=== PATIENT | female | born 1995 | race Caucasian/White ===

== ENCOUNTER 2016-12-25 15:07 | Emergency (ER) ==
[~2016-12-25] VITALS: Ht 167.6 cm; Wt 63.6 kg
[2016-12-25 15:08] VITALS: BP 133/66
== END 2016-12-25 15:31 | disposition left against medical advice (07) ==
LOC: M ED 15:07
DX: R25.2 Cramp and spasm (principal); Z53.21 Procedure and treatment not carried out due to patient leaving prior to being seen by health care provider

== ENCOUNTER 2016-12-26 09:24 | Emergency (ER) | payer OTHER ==
[~2016-12-26] VITALS: Ht 167.6 cm; Wt 63.6 kg
[2016-12-26] MEDS ORDERED: NS 1,000 ML IV ONE (10:15)
[2016-12-26 10:31] LABS: BASO % 0.4 % (0.0-1.0); EOS # 0.4 K/mm3 (0.0-0.50); EOS % 4.3 % (0.0-3.0); LARGE UNSTAINED CELL # 0.2 K/mm3 (0.0-0.4); LARGE UNSTAINED CELL % 1.7 % (0.0-4.0); LYMPH # 1.3 K/mm3 (1.5-6.5); LYMPH % 14.5 % (24.0-44.0); MEAN CORPUSCULAR HEMOGLOBIN 30.9 pg (27.0-33.0); MEAN CORPUSCULAR HGB CONC 35.6 g/dl (32.0-36.5); MEAN CORPUSCULAR VOLUME 86.8 fl (80.0-96.0); MONO # 0.4 K/mm3 (0.0-0.8); MONO % 4.3 % (0.0-5.0); NEUTROPHILS # 6.8 K/mm3 (1.8-7.7); NEUTROPHILS % 74.8 % (36.0-66.0); PLATELET COUNT, AUTOMATED 335 k/mm3 (150-450); RED CELL DISTRIBUTION WIDTH 13.2 % (11.5-14.5)
[2016-12-26 11:10] LABS: ALBUMIN 3.9 GM/DL (3.2-5.2); ALBUMIN/GLOBULIN RATIO 0.98 (1.00-1.93); ALKALINE PHOSPHATASE 69 U/L (45-117); ALT/SGPT 25 U/L (12-78); ANION GAP 5 MEQ/L (8-16); AST/SGOT 12 U/L (15-37); BILIRUBIN,DIRECT 0.1 MG/DL (0.0-0.2); BILIRUBIN,TOTAL 0.5 MG/DL (0.2-1.0); BLOOD UREA NITROGEN 13 MG/DL (7-18); CALCIUM LEVEL 9.3 MG/DL (8.5-10.1); CARBON DIOXIDE LEVEL 28 MEQ/L (21-32); CHLORIDE LEVEL 106 MEQ/L (98-107); CREATININE FOR GFR 0.73 MG/DL (0.55-1.02); GLOMERULAR FILTRATION RATE > 60.0 (>60); GLUCOSE, FASTING 78 MG/DL (70-105); POTASSIUM SERUM 3.9 MEQ/L (3.5-5.1); SODIUM LEVEL 139 MEQ/L (136-145); TOTAL PROTEIN 7.9 GM/DL (6.4-8.2)
--- NOTE | 2016-12-26 12:11 | REP ---
Obstetric ultrasound, emergency room request, first trimester with right lower quadrant pelvic pain. There are no comparison studies. The study is performed with transabdominal, endovaginal and Doppler ultrasound assessment. There is an intrauterine gestational sac with a pole. The pole crown-rump length is 2.5 mm corresponding to 5 weeks 6 days gestational age. We are able to visualize cardiac activity on real time imaging. No heart rate is detectable with M-mode imaging. This is nonspecific and may merely be secondary to early gestational age, however, demise is not entirely discounted. Follow-up is recommended. There is a rounded echogenic structure along the left lateral margin of the gestational sac measuring 4.5 x 3.2 x 2.3 cm, possibly a large subchorionic hematoma. There is a normal size yolk sac measuring up to four or millimeters in diameter. There is a right ovarian complex hemorrhagic cyst measuring up to 2.8 cm, possibly a corpus luteum. Including this cyst in the right ovary is upper normal size measuring 4.0 x 2.6 x 3.2 cm. The left ovary is normal size measuring 2.6 x 1.8 x 2.2 cm and otherwise unremarkable. There is vascular flow in both ovaries with the Doppler resistive index of the intraparenchymal arteries on the right measuring 0.31, left 0.18. Impression: There is intrauterine gestation. There is no identifiable cardiac activity. This may merely be secondary to early gestational age or could represent demise. Follow-up is recommended. Suspect a large subchorionic hematoma to the left of the gestational sac. There is a normal size yolk sac. There is vascular flow in both ovaries. There is a hemorrhagic 2.7 cm right ovarian corpus luteum. No free fluid in the pelvis. Signed by Hans Colon MD 12/26/2016 12:03 P
[2016-12-26 13:11] VITALS: BP 118/65
== END 2016-12-26 13:35 | disposition home or self-care (01) ==
LOC: M ED 09:24
DX: O99.89 Other specified diseases and conditions complicating pregnancy, childbirth and the puerperium (principal); R10.31 Right lower quadrant pain; Z3A.01 Less than 8 weeks gestation of pregnancy

== ENCOUNTER → 2017-03-10 | Outpatient (CLI) | payer OTHER ==
[2017-03-10 15:35] LABS: BASO % 0.3 % (0.0-1.0); EOS # 0.3 10^3/uL (0.0-0.50); EOS % 2.9 % (0.0-3.0); IMMATURE GRANULOCYTE % 1.3 % (0-0); LYMPH # 1.6 10^3/uL (1.5-6.5); LYMPH % 14.2 % (24.0-44.0); MEAN CORPUSCULAR HEMOGLOBIN 30.6 pg (27.0-33.0); MEAN CORPUSCULAR HGB CONC 34.6 g/dl (32.0-36.5); MEAN CORPUSCULAR VOLUME 88.3 fl (80.0-96.0); MONO # 0.8 10^3/uL (0.0-0.8); MONO % 6.9 % (0.0-5.0); NEUTROPHILS # 8.6 10^3/uL (1.8-7.7); NEUTROPHILS % 74.4 % (36.0-66.0); PLATELET COUNT, AUTOMATED 235 10^3/uL (150-450); RED CELL DISTRIBUTION WIDTH 13.5 % (11.5-14.5); WHITE BLOOD COUNT 11.5 10^3/uL (4.0-10.0)
[2017-03-12 11:09] LABS: HBsAg Prenatal NEGATIVE (NEGATIVE)
== END ==
LOC: M LAB 15:08
PROVIDERS: ATTEND Obstetrics & Gynecology
DX: Z34.81 Encounter for supervision of other normal pregnancy, first trimester (principal)

== ENCOUNTER → 2017-03-28 | Outpatient (CLI) | payer OTHER ==
--- NOTE | 2017-03-28 10:14 | REP ---
Obstetric ultrasound for anatomy: There is a single intrauterine gestation. position is variable. There is motion. heart rate is 163 beats per minute. The placenta is anterior. There is no previa or abruptio. Placenta is grade zero. The amniotic fluid volume subjectively is normal. The cervix measures 4 cm length. Gestational Age: By LMP: 19 w 0 d By Today's US: 19 w 0 The OLMAN is 08/22/2017. Weight: 2-63 gm/ 0 lbs, 9 oz W 45 %ile for 19 w 0 d The following anatomic structures are identified and are unremarkable: Intracranial lateral ventricles, choroid plexus, cavum septum pellucidum, cerebellum, facial profile, upper lip, face, lungs, diaphragm, stomach, cord insertion, three-vessel cord, kidneys, bladder, spine and upper lower extremities. Suboptimally demonstrated are the four-chamber heart and cardiac right and left ventricular outflow tracts. Followup study dedicated to these structures suboptimally demonstrated might be considered. Otherwise, there are no anomalies. Signed by Hans Colon MD 03/28/2017 10:05 A
== END ==
LOC: M RAD 08:36
PROVIDERS: ATTEND Obstetrics & Gynecology
DX: Z34.82 Encounter for supervision of other normal pregnancy, second trimester (principal); Z3A.19 19 weeks gestation of pregnancy

== ENCOUNTER → 2017-05-02 | Outpatient (CLI) | payer OTHER ==
--- NOTE | 2017-05-02 15:10 | REP ---
Clinical: Anatomical evaluation. Comparison: 03/28/2017 . Findings: Examination demonstrates a single live intrauterine in cephalic presentation. motion is identified by technologist. Placenta is noted anteriorly and grade zero without evidence for placenta previa or abruption. Amniotic fluid volume is normal. Cervix measures 4.1 cm in length and appears closed. No evidence for nuchal cord. Gestational age by LMP 24 weeks 0 days with OLMAN 08/23/1979 . Gestational age by current measurements 24 weeks 2 days with OLMAN 08/20/2017 . FHR equals 147 beats per minute. Estimated weight 641 grams ( 42nd percentile). Anatomical assessment demonstrates normal structures including cranium, choroid plexus, cavum, cerebellum/posterior fossa, facial features, lungs, four-chamber heart/ventricular outflow tracts, diaphragm, stomach, cord insertion/three-vessel cord, kidneys/bladder, and extremities. Impression: Single live intrauterine in cephalic presentation. In conjunction with prior examination anatomical assessment is complete and normal. Signed by Chandler Paul MD 05/02/2017 03:02 P
== END ==
LOC: M RAD 13:31
PROVIDERS: ATTEND Obstetrics & Gynecology
DX: Z36.2 Encounter for other antenatal screening follow-up (principal)

== ENCOUNTER → 2017-06-17 | Outpatient (CLI) | payer OTHER ==
[2017-06-17 11:56] LABS: BASO % 0.3 % (0.0-1.0); EOS # 0.3 10^3/uL (0.0-0.50); EOS % 2.5 % (0.0-3.0); HEMATOCRIT 34.1 % (36.0-47.0); HEMOGLOBIN 11.5 g/dl (12.0-16.0); IMMATURE GRANULOCYTE # 0.2 10^3/uL (0-0); IMMATURE GRANULOCYTE % 1.3 % (0-0); LYMPH # 1.3 10^3/uL (1.5-6.5); LYMPH % 11.4 % (24.0-44.0); MEAN CORPUSCULAR HEMOGLOBIN 29.8 pg (27.0-33.0); MEAN CORPUSCULAR HGB CONC 33.7 g/dl (32.0-36.5); MEAN CORPUSCULAR VOLUME 88.3 fl (80.0-96.0); MONO # 0.8 10^3/uL (0.0-0.8); MONO % 6.7 % (0.0-5.0); NEUTROPHILS # 8.7 10^3/uL (1.8-7.7); NEUTROPHILS % 77.8 % (36.0-66.0); PLATELET COUNT, AUTOMATED 243 10^3/uL (150-450); RED BLOOD COUNT 3.86 10^6/uL (4.00-5.40); RED CELL DISTRIBUTION WIDTH 12.9 % (11.5-14.5); WHITE BLOOD COUNT 11.2 10^3/uL (4.0-10.0)
[2017-06-17 12:14] LABS: GLUCOSE CHALLENGE TEST 1 HOUR 108 MG/DL (LESS THAN 140)
== END ==
LOC: M LAB 09:39
DX: Z34.82 Encounter for supervision of other normal pregnancy, second trimester (principal)
CPT/HCPCS: 82950

== ENCOUNTER → 2017-07-28 | Outpatient (REF) | payer OTHER | LOC: M LAB REF 17:35 | DX: Z34.83 Encounter for supervision of other normal pregnancy, third trimester (principal) ==

== ENCOUNTER 2017-08-22 22:15 | Inpatient (IN) | payer OTHER ==
[2017-08-22] MEDS ORDERED: LR 1,000 ML IV (22:48)
[2017-08-22] MEDS: LACTATED RINGER'S 1000 ML IV (22:48)
[2017-08-22 23:07] LABS: HEMATOCRIT 33.9 % (36.0-47.0); HEMOGLOBIN 11.4 g/dl (12.0-16.0); MEAN CORPUSCULAR HEMOGLOBIN 27.9 pg (27.0-33.0); MEAN CORPUSCULAR HGB CONC 33.6 g/dl (32.0-36.5); MEAN CORPUSCULAR VOLUME 83.1 fl (80.0-96.0); PLATELET COUNT, AUTOMATED 230 10^3/uL (150-450); RED BLOOD COUNT 4.08 10^6/uL (4.00-5.40); RED CELL DISTRIBUTION WIDTH 13.6 % (11.5-14.5); WHITE BLOOD COUNT 16.7 10^3/uL (4.0-10.0)
[2017-08-22] MEDS ORDERED: FENTANYL 2MCG/ML ROPIVACAINE 0.2% IN 0.9% NACL 200ML IVBAG As Ordered (23:23)
[2017-08-22] MEDS ORDERED: REFRIGERATOR IV KEYS XX (23:56)
[2017-08-22] MEDS ORDERED: diphenhydrAMINE INJ 50MG/ML VIAL (J1200) IV (23:56)
[2017-08-22] MEDS ORDERED: FENTANYL/ROPIVACAINE/NACL BAG 200 ML EPIDURAL (23:56)
[2017-08-22] MEDS ORDERED: NALOXONE INJ 0.4 MG/1 ML VIAL (J2310) IV (23:56)
[2017-08-22] MEDS ORDERED: EPIDURAL COMMENT XX (23:56)
[2017-08-22] MEDS ORDERED: EPIDURAL/PCA KEYS XX (23:56)
[2017-08-22] MEDS ORDERED: LACTATED RINGER'S 1000 ML IV (23:56)
[2017-08-22] MEDS ORDERED: ePHEDrine SULFATE 25 MG/5 ML(5MG/ML) SYRINGE IV (23:56)
[2017-08-23] MEDS: ONDANSETRON 4MG/2ML VIAL (J2405) IV (01:11)
[2017-08-23] MEDS ORDERED: OXYTOCIN 30 UNITS IN 0.9% NaCl 500ML IV BAG (J2590) As Ordered (01:17)
[2017-08-23] MEDS ORDERED: ANUSOL HC CREAM 30GM TOP (02:45)
[2017-08-23] MEDS ORDERED: DIBUCAINE 1% OINTMENT 30GM TOP (02:45)
[2017-08-23] MEDS: OXYTOCIN DRIP 30 UNITS in APPROPRIATE DILUENT 1 EA IV (02:45)
[2017-08-23] MEDS ORDERED: METHYLERGONOVINE MALEATE 0.2 MG TAB PO (02:45)
[2017-08-23] MEDS: LIDOCAINE 1% MDV 20ML VIAL INFIL (02:45)
[2017-08-23] MEDS ORDERED: CEFAZOLIN SOD 1 GM in APPROPRIATE DILUENT 1 EA IV (07:00)
[2017-08-23] MEDS: PRENATAL VITAMINS CHEWABLE TABLET PO (07:57)
[2017-08-23] MEDS: IBUPROFEN 800 MG TAB PO ×2 (08:01→18:32)
[2017-08-23] MEDS: DOCUSATE SODIUM 100 MG CAP PO (18:32)
[2017-08-24] MEDS: ACETAMINOPHEN 500 MG TAB PO (00:36)
[2017-08-24] MEDS: MEASLES,MUMPS,RUBELLA VACCINE INJ (MMR-II) (90707) SC (07:31)
[2017-08-24] MEDS: RHOGAM 300 MCG (1500 IU) INJ (J2790) IM (07:31)
[2017-08-24] MEDS: PRENATAL VITAMINS CHEWABLE TABLET PO (07:55)
[2017-08-24] MEDS: INFLUENZA QUADRIVALENT PF VACCINE 0.5ML SYRINGE (90686) IM (07:56)
== END 2017-08-24 11:05 | disposition home or self-care (01) | DRG 775 ==
LOC: M LDO 22:15 → M OBS 08-23 05:00 → M LDI 22:50
PROVIDERS: Advanced Practice Midwife
PROC: 10E0XZZ Delivery of Products of Conception, External Approach (ICD-10-PCS; principal; 2017-08-23)
PROC: 0HQ9XZZ Repair Perineum Skin, External Approach (ICD-10-PCS; 2017-08-23)
DX: O99.824 Streptococcus B carrier state complicating childbirth (principal); Z3A.39 39 weeks gestation of pregnancy; O70.0 First degree perineal laceration during delivery; Z37.0 Single live birth

== ENCOUNTER → 2019-03-17 | Outpatient (REF) | payer OTHER ==
[~2019-03-17] MED LIST: IBUP-1114 PO; MAPA500T2 PO; PRENTAB9 PO
== END ==
LOC: M LAB REF 12:22
PROVIDERS: ATTEND Physician Assistant
DX: J00 Acute nasopharyngitis [common cold] (principal)